=== PATIENT | male | born 1960 | race Caucasian/White ===

== ENCOUNTER → 2024-08-02 | Outpatient (CLI) | payer BC ==
[2024-08-02 15:12] LABS: HCT 46.4 % (39.6-50.0); HGB 14.7 g/dL (13.0-17.0); MCH 28.1 pg (27.0-32.0); MCHC 31.7 g/dL (32.0-37.0); MCV 88.5 FL (80.0-97.0); NRBC Per 100 WBC 0 X 10*3/uL (0.00-0.01); Platelet Count 214 X 10*3/uL (140-440); RBC 5.24 X 10*6/uL (4.40-5.60); RDW 13.2 % (11.5-14.5); WBC 6.81 X 10*3/uL (4.50-10.00)
[2024-08-02 16:44] LABS: Blood Urea Nitrogen 11.8 mg/dL (9.0-27.0); Carbon Dioxide 22.7 mmol/L (21.6-31.8); Chloride 103 mmol/L (96-109); Sodium 139 mmol/L (135-145)
== END | disposition home or self-care (01) ==
LOC: LABPAT 10:20
PROVIDERS: ATTEND Internal Medicine Clinical Cardiac Electrophysiology
DX: Z01.812 Encounter for preprocedural laboratory examination (principal); I21.01 ST elevation (STEMI) myocardial infarction involving left main coronary artery; I25.5 Ischemic cardiomyopathy
CPT/HCPCS: 80051; 82565; 84520; 85027

== ENCOUNTER 2024-08-16 11:34 | Day surgery (SDC) | payer BC ==
[~2024-08-16 11:34] MED LIST: HYDROmorphone 0.5 MG/0.5 ML SYRINGE IVP PRN; MIDAZOLAM 2 MG/2 ML VIAL IV PRN
[2024-08-16] MEDS: IV FLUID CONTINUATION 1,000 ML IV ONE (12:33)
[2024-08-16] MEDS ORDERED: PHENYLEPHRINE-0.9% NACL SYG 1,000 MCG/10 ML SYRINGE ONE (13:58)
[2024-08-16] MEDS ORDERED: PROPOFOL 10 MG/ML 20 ML VIAL IV ONE (13:58)
[2024-08-16] MEDS ORDERED: MIDAZOLAM 2 MG/2 ML VIAL ONE (13:58)
[2024-08-16] MEDS ORDERED: diphenhydrAMINE 50 MG/ML 1 ML VIAL ONE (13:58)
[2024-08-16] MEDS ORDERED: fentaNYL (PF) 50 MCG/ML 2 ML AMP ONE (13:58)
[2024-08-16] MEDS: ceFAZolin 1 GM in SODIUM CHLORIDE 0.9% IRRIG BTL 250 ML IRRIGATION PRN (14:35)
[2024-08-16] MEDS: ceFAZolin 2 GM in DEXTROSE 5% IN WATER 50 ML IVPB PRN (14:36)
[2024-08-16] MEDS: LIDOCAINE 1% INJ 10MG/ML (20 ML MDV) SQ ONE (14:41)
[2024-08-16] MEDS: ROPIVACAINE 5 MG/ML 30 ML VIAL MISCELLANE ONE (14:46)
--- NOTE | 2024-08-16 16:33 | P.EPPROC ---
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 Mario YOUSSEF dual-chamber ICD, Perkins Atrial lead: Perkins, P waves 2.1 mV, pacing with 450 ohms, pacing threshold 0.75 V at 0.5 ms 10 V test is negative RV ICD lead: Single coil Opti sure Perkins lead, R waves 12 mV, pace impedance 730 ohms, pacing threshold 0.5 V at 0.5 ms. High-voltage impedance 65 ohms Procedure details: Patient was brought to the EP lab in a fasting state. Written informed consent was obtained prior to the procedure. Options, pros and cons, benefits and risks and complications discussed with patient in detail prior to the procedure (shared decision making). Importance of continuing medical treatment emphasized. Alternatives discussed. Patient would like to proceed with dual-chamber ICD implant. Left upper extremity venogram performed. 15 mL IV dye injected in the left arm. Patent axillary/subclavian vein The left pectoral area was prepped and draped as a protocol. IV antibiotics administered 1% lidocaine was used for local anesthesia. A 4 cm incision was made parallel to the deltopectoral groove, about 1.5 cm medial to it. The incision was carried down to the level of the pectoralis muscle and the subfascial pocket was made. Hemostasis was assured. The axillary vein access was obtained. Appropriately sized into to see sheaths were placed. ICD lead implanted in the right ventricle and screwed in. ICD lead tested for threshold, sensing, impedances and tested with high output pacing for diaphragmatic stimulation Atrial lead placed in the right atrial appendage and tested for threshold, sensing, impedance, and tested with high output pacing. Phrenic nerve stimulation Lead secured to the underlying transverse muscle after removing sheaths . Pocket irrigated with antibiotic solution Leads connected to the biventricular ICD generator. Wound closed in 3 layers and dressed per protocol Dual ICD interrogated and programmed. Appropriate pacing parameters, antitachycardia therapies with antitachycardia pacing cardioversion defibrillations programmed. Patient tolerated the procedure well without any acute complications. See scanned device report in EMR for lead details
[2024-08-16] MEDS: ACETAMINOPHEN IV (For NPO) 1,000 MG in EMPTY BAG 1 BAG IVPB ONE (16:48)
[2024-08-16] MEDS: SODIUM CHLORIDE 0.9% 1,000 ML IV SCH (17:18)
[2024-08-16] MEDS: LACTATED RINGERS 1,000 ML IV SCH (17:18)
[2024-08-16] MEDS: TICAGRELOR 90 MG TAB PO SCH (21:22)
[2024-08-16] MEDS: ATORVASTATIN 80 MG TAB PO SCH (21:22)
[2024-08-16] MEDS: carvediloL 3.125 MG TAB PO SCH (21:23)
[2024-08-16] MEDS: ACETAMINOPHEN TAB 325 MG TAB PO PRN (23:09)
[2024-08-17] MEDS: ceFAZolin 2 GM in DEXTROSE 5% IN WATER 50 ML IVPB SCH (03:14)
[2024-08-17 07:24] VITALS: BP 107/71; PULSE 62; RESP 16; TEMP 98.1
[2024-08-17] MEDS: DAPAGLIFLOZIN PROPANEDIOL 5 MG TABLET PO SCH (08:28)
[2024-08-17] MEDS: ASPIRIN 81 MG PO SCH (08:29)
--- NOTE | 2024-08-17 11:38 | P.DS ---
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 Triplett as previously scheduled Plan - Discharge Summary Discharge Rx Participant: No New Discharge Prescriptions: New RX: carvediloL [Coreg] 3.125 mg PO BID #180 tablet Discontinued Metoprolol Succinate [Kapspargo Sprinkle] 25 mg PO DAILY No Action RX: Dapagliflozin Propanediol [Farxiga] 5 mg PO DAILY #30 tab RX: lisinopriL [Zestril] 2.5 mg PO DAILY #30 tab Cholecalciferol (Vitamin D3) [Vitamin D3 (50 Mcg = 2000 Iu)] 50 mcg PO HS Ticagrelor [Brilinta] 90 mg PO BID #60 tab RX: Aspirin 81 mg PO DAILY #30 tab RX: Nitroglycerin Sl Tabs [Nitrostat] 0.4 mg SUBLINGUAL Q5M PRN #20 tab PRN Reason: Chest Pain RX: Atorvastatin [Lipitor] 80 mg PO HS Discharge Medication List Ticagrelor [Brilinta] 90 mg PO BID #60 tab 04/06/24 [Rx] RX: Aspirin 81 mg PO DAILY #30 tab 04/07/24 [Rx] RX: Dapagliflozin Propanediol [Farxiga] 5 mg PO DAILY #30 tab 04/07/24 [Rx] RX: Nitroglycerin Sl Tabs [Nitrostat] 0.4 mg SUBLINGUAL Q5M PRN #20 tab 04/07/24 [Rx] RX: lisinopriL [Zestril] 2.5 mg PO DAILY #30 tab 04/07/24 [Rx] Cholecalciferol (Vitamin D3) [Vitamin D3 (50 Mcg = 2000 Iu)] 50 mcg PO HS 08/12/24 [History] RX: Atorvastatin [Lipitor] 80 mg PO HS 08/12/24 [History] RX: carvediloL [Coreg] 3.125 mg PO BID #180 tablet 08/16/24 [Rx] Follow up Appointment(s)/Referral(s): Marino Triplett MD [STAFF PHYSICIAN] - 08/25/24 3:30 pm (FOLLOW UP APPOINTMENT MADE WITH DEVICE CLINIC. [facility] follow-up in 6 months) Activity/Diet/Wound Care/Special Instructions: PATIENT EDUCATION MATERIAL Instructions following a heart rhythm device implant. 1. Keep dressing DRY for 5 DAYS. You may cover the area with Saran or Cling Wrap, prior to a shower. 2. The dressing will be removed in the Device Clinic at [facility]. Absorbable sutures were used to close the wound. 3. Avoid raising the left arm above the shoulder level. 4 week restriction 4. Avoid arm movements, like backscratching, rubbing the head, or pulling on a cord. 4 weeks restriction 5. Gentle range of motion movements of the shoulder, closest to the incision should be performed to avoid a frozen shoulder. (Pendulum exercises of the shoulder) 6. The opposite arm may be used freely. 7. Avoid driving for 7 days. 8. Avoid activities such as golfing, swimming, weed whacking, lifting more than 10 pounds weight, bowling, gymnastics and weight training/lifting. (6 weeks restriction) 9. Activities such as wood chopping with an axe, pull-ups in the gymnasium, power lifting, arc-welding, being close to home induction cooktops will always be a problem. 10. Arm sling is only a reminder not to raise the arm above the head. You do not need to keep the arm completely immobilized. Your free to move the arm and use it and for normal activities. In case of any problems, please call [facility], @ [phone], Attention: Device Clinic Device clinic follow-up in 5 days Follow-up with primary manager wealth management in 2-3 months Stop metoprolol succinate Start carvedilol 3.125 mg twice daily Continue all other medications unchanged Discharge Disposition: HOME SELF-CARE
--- NOTE | 2024-08-17 13:16 | XR ---
EXAMINATION TYPE: XR chest 2V DATE OF EXAM: 08/17/2024 8:17 AM COMPARISON: 04/06/2024 CLINICAL INDICATION: Male, 64 years old with history of Lead placement check, TECHNIQUE: XR chest 2V view(s) obtained. FINDINGS: The heart size is normal. Pacemaker overlies left chest The pulmonary vasculature is normal. The lungs are clear. IMPRESSION: 1. No acute pulmonary process. [facility], , 08/17/2024 1:14 PM
== END 2024-08-17 14:00 | disposition home or self-care (01) ==
LOC: CATHEP 11:34 → 6NMEDSUR 16:19 → CATHEP 08-17 14:00
PROVIDERS: ATTEND Internal Medicine Clinical Cardiac Electrophysiology
DX: I25.110 Atherosclerotic heart disease of native coronary artery with unstable angina pectoris (principal); I44.1 Atrioventricular block, second degree; I25.5 Ischemic cardiomyopathy; I25.2 Old myocardial infarction; I50.9 Heart failure, unspecified; Z79.84 Long term (current) use of oral hypoglycemic drugs; Z79.02 Long term (current) use of antithrombotics/antiplatelets; Z79.82 Long term (current) use of aspirin; Z79.899 Other long term (current) drug therapy
CPT/HCPCS: 33249; 84443; 71046; C1721; C1898; C1777; J2250; J1200; J0690 ×2; J2003; J3010; J2795; J0131; J2704; J2371